=== PATIENT | male | born 1965 | race Caucasian/White ===

== ENCOUNTER 2018-11-19 23:11 | Inpatient (IN) ==
[2018-11-19] MEDS ORDERED: ONDANSETRON HCL/PF 2 MG/ML VIAL IV ONE (23:58)
[2018-11-19] MEDS ORDERED: NORMAL SALINE 1,000 ML IV ONE (23:59)
--- NOTE | 2018-11-20 00:06 | ERNOTE ---
Abdominal HPI - General Chief Complaint: Abdominal Pain Time Seen by Provider: 11/19/18 23:43 Source: patient Exam Limitations: clinical condition - Immun/Allergies/Home Medications Immunizatons: IMMUNIZATION HX Immunizations Up to Date Yes History of Influenza Vaccine No Hx Pneumococcal Vaccination No Allergies/Adverse Reactions: Allergies codeine Allergy (Verified 11/19/18 23:36) itching Home Medications: HOME MEDICATIONS Lisinopril/Hydrochlorothiazide [Lisinopril-Hctz 20-12.5 mg Tab] 1 ea PO DAILY 11/19/18 [Last Taken Unknown] - History of Present Illness Narrative: Pt states that earlier today he began to have periumbilical abdominal pain that has worsened. He is concerned that he may have injested some metal after opening a can of food with tin snips. Timing: getting worse Quality: moderate, severe, aching Activities at Onset: none Associated Symptoms: Present: nausea. Absent: back pain, vomiting Review of Systems - Review of Systems Constitutional: Present: recent illness - URI, just finished azithromycin today, fever, chills, fatigue EYE: Absent: vision changes ENT: Present: nose congestion, nasal drainage - with previous illness Respiratory: Present: shortness of breath Cardiology: Absent: chest pain Gastrointestinal/Abdominal: Present: See HPI, nausea, constipation. Absent: vomiting, diarrhea Genitourinary: Absent: frequency, pain, dysuria Musculoskeletal: Absent: back pain Skin: Absent: rash Neurological: Absent: headache, dizziness/light-headedness Endocrine: Present: excessive sweating. Absent: increased hunger Medical History (Last Reviewed 11/19/18 @ 23:57 by Ismael Jaeger DO) Arthritis Onset Date: Unknown Hernia Onset Date: Unknown Right knee pain Onset Date: ~08/2018 Surgical History: Surgical History (Last Reviewed 11/19/18 @ 23:57 by Ismael Jaeger DO) History of hernia surgery Onset Date: Unknown x3 Family History: Family History (Last Reviewed 11/19/18 @ 23:57 by Ismael Jaeger DO) Mother Cancer Father CVA (cerebral vascular accident) Social History: Preferred Language Japanese Do you have any gnosticist or No cultural preference? Smoking Status Current every day smoker Smoking packs per day 0.5 Alcohol Use none Drug Use none (Last Updated 08/22/18 @ 13:22 by VANDANA Olmstead) No Social History Section defined Physical Exam - Physical Exam General Appearance: Present: wd/wn, alert, moderate distress Head Exam: Present: normal inspection, no evidence of injury Eye Exam: Normal inspection: bilateral, PERRL: bilateral, EOMI: bilateral Ears, Nose, Throat: Present: normal ENT inspection Neck: Present: normal inspection, nontender, supple, full range of motion Respiratory: Present: no respiratory distress, no accessory muscle use, chest nontender, lungs clear Cardiovascular/Chest: Present: regular rate, rhythm, no murmur Gastrointestinal/Abdominal: Present: normal bowel sounds, tenderness - most epigastric and RLQ. . Absent: distended, guarding, rebound Back Exam: Present: normal inspection, normal range of motion, no CVA tenderness Extremity Exam: Present: normal inspection, non-tender, normal range of motion, no edema Neurological Exam: Present: alert, oriented, no motor/sensory deficits Skin Exam: Present: normal color, warm/dry Lymphatic Exam: Present: no adenopathy Progress - Results and Orders Patient's Lab Results:: I have reviewed the patient's lab results. Results and Orders: Laboratory Tests 11/20/18 11/20/18 11/20/18 00:05 00:05 01:21 WBC 19.4 H Hgb 15.8 Hct 47.6 Plt Count 305 Sodium 132 Potassium 4.4 Chloride 97 Carbon Dioxide 25.1 BUN 19 Creatinine 1.22 Random Glucose 123 H Calcium 9.1 Total Bilirubin 0.4 AST 19 ALT 19 Alkaline Phosphatase 106 Total Protein 7.3 Albumin 3.7 Amylase 63 Lipase 204 Urine Color Yellow Urine Appearance Clear Urine pH 6.5 Ur Specific [place] 1.025 Urine Protein Negative Urine Glucose (UA) Negative Urine Ketones Negative Urine Blood Negative Urine Nitrate Negative Urine Bilirubin Negative Urine Urobilinogen Normal Ur Leukocyte Esterase Negative Urine RBC None seen Urine WBC Trace Ur Epithelial Cells Trace Urine Bacteria Trace Hyaline Casts 0-5 H Urine Culture Comments No culture indicated - Vital Signs Patient's Vital Signs:: I have reviewed the patient's vital signs. Vital Signs: Vital Signs 11/19/18 23:30 Temperature 36.7 C Pulse Rate 102 H Respiratory Rate 18 Blood Pressure 116/82 O2 Sat by Pulse Oximetry 95 - X-Ray X-Ray #1 X-Ray: abdomen Interpretation: Interp. by nc X-ray Comments: mild - mod a/f levels without specific evidence for obstruction. no free air. X-Ray #2 X-Ray: chest Interpretation: Interp. by me X-ray Comments: Post NG placement. NG tube well within the stomach. - CT/Ultrasound CT/Ultrasound Narrative: CT abdomen/ pelvis: Acute small bowel obstruction with distal transition point. No evidence of obstruction. - Progress/Reassessment Chief Complaint: Abdominal Pain Progress:: Improved Progress Note-Subjective: 11/20/18 04:[address] Acharya about admission, She agrees with admission. Departure Clinical Impression: Small bowel obstruction - Departure Disposition: Still a patient Condition: Fair
[2018-11-20 00:14] LABS: Hematocrit 47.6 % (42.0-52.0); Hemoglobin 15.8 gm/dL (13.5-18.0); Mean Cell Volume 86.9 fl (78-100); Mean Corpuscular Hemoglobin 28.8 pg (27-31); Mean Corpuscular Hgb Conc 33.2 g/dl (32-36); Mean Platelet Volume 10.1 fl (8-11.3); Neutrophil # 14.5 K/mm3 (1.3-6.0); Neutrophil % 74.8 % (42-75.0); Platelet Count 305 K/mm3 (150-450); Red Blood Count 5.48 M/mm3 (4.7-6.0); Red Cell Distribution Width 14.1 % (11.5-14.0); White Blood Count 19.4 K/mm3 (4.0-10.5)
[2018-11-20 00:29] LABS: BUN/Creatinine Ratio 15.6 (9.0-21.6)
[2018-11-20 00:30] LABS: Albumin * 3.7 gm/dl (3.4-5.0); Anion Gap 14.3 mmol/L (6.8-13.8); Bilirubin, Total 0.4 mg/dL (0.0-1.1); Calcium * 9.1 mg/dL (7.9-10.9); Carbon Dioxide 25.1 mmol/L (24-32.6); Potassium 4.4 mmol/L (3.4-4.6); Total Protein 7.3 gm/dL (6.2-8.2)
[2018-11-20 01:24] LABS: Urine Bilirubin Negative (NEGATIVE); Urine Blood Negative /ul (NEGATIVE); Urine Ketone Negative (NEGATIVE); Urine Nitrite Negative (NEGATIVE); Urine Protein Negative (NEGATIVE); Urine Specific Gravity 1.025 SP.GR. (1.005-1.030); Urine Urobilinogen Normal (NORMAL); Urine pH 6.5 pH (5.0-7.0)
[2018-11-20 01:33] LABS: Urine Appearance Clear (CLEAR); Urine Bacteria TRACE; Urine Color Yellow; Urine Hyaline Cast 0-5 /LPF; Urine RBC None Seen /hpf (0-5); Urine WBC TRACE /hpf (0-5)
[2018-11-20] MEDS ORDERED: DIATRIZOATE MEGLUMINE, SODIUM 30 ML BTL PO ONE (01:37)
[2018-11-20] MEDS ORDERED: MORPHINE SULFATE 2 MG/ML DISP.SYRIN IV ONE ×2 (01:39→04:13)
[2018-11-20] MEDS: ONDANSETRON HCL/PF 2 MG/ML VIAL IV PRN ×2 (07:22→20:15)
[2018-11-20] MEDS ORDERED: ACETAMINOPHEN 1,000 MG/100 ML BTL IV PRN (07:25)
[2018-11-20 08:03] LABS: Troponin I Less than 0.017 ng/mL (0.00-0.10)
[2018-11-20 08:08] LABS: CK Total * 61 U/L (0-259); CKMB 1.5 ng/mL (0.0-9.0)
[2018-11-20] MEDS: POTASSIUM CHLORIDE 20 MEQ in DEXTROSE 5%-0.5 NORMAL SALINE 990 ML IV SCH ×2 (08:23→16:31)
[2018-11-20] MEDS: PANTOPRAZOLE SODIUM 40 MG in NORMAL SALINE 100 ML IV SCH (08:24)
[2018-11-20 08:34] LABS: Hematocrit 48.9 % (42.0-52.0); Hemoglobin 16.4 gm/dL (13.5-18.0); Mean Cell Volume 87.2 fl (78-100); Mean Corpuscular Hemoglobin 29.2 pg (27-31); Mean Corpuscular Hgb Conc 33.5 g/dl (32-36); Mean Platelet Volume 10.2 fl (8-11.3); Neutrophil # 14.9 K/mm3 (1.3-6.0); Neutrophil % 79.3 % (42-75.0); Platelet Count 301 K/mm3 (150-450); Red Blood Count 5.61 M/mm3 (4.7-6.0); Red Cell Distribution Width 14.2 % (11.5-14.0); White Blood Count 18.8 K/mm3 (4.0-10.5)
--- NOTE | 2018-11-20 08:40 | HP ---
Chief Complaint - Chief Complaint Date of Service: 11/20/18 Time of Service: 08:39 Chief Complaint: bowel obstruction History of Present Illness: Patient's mother provided most of the history. Patient is hard of hearing, but did not answer many of my questions, even with a loud voice. He states that his last bowel movement was the day before yesterday. He is uncertain if he is passing flatus. His mother states he has never had a bowel obstruction before. He has had multiple inguinal hernia surgeries in the past. He breakfast and lunch yesterday. He called his mom last night and said he did not feel on asked her to take him to the emergency room. He believes that his last stool was normal. He has never had a colonoscopy. There is a family history of colon cancer in his aunt, but no first-degree relative. He previously had chest pain this morning. He also was having dry heaves at the same time. He has not had much out of his NG tube. After receiving Zofran, dry heaves improved, and his chest pain resolved. He currently denies any abdominal pain. As I continued with the interview his abdominal pain return, it was mild, he was not grimacing, but he states that comes and goes. Medical History (Last Updated 11/20/18 @ 07:06 by Daisy Ramirez RN) HTN (hypertension) Arthritis Onset Date: Unknown Hernia Onset Date: Unknown Right knee pain Onset Date: ~08/2018 Surgical History: Surgical History (Last Reviewed 11/20/18 @ 07:06 by Daisy Ramirez RN) History of hernia surgery Onset Date: Unknown x3 Family History: Family History (Last Reviewed 11/20/18 @ 07:06 by Daisy Ramirez RN) Mother Cancer Father CVA (cerebral vascular accident) H/O mitral valve replacement Brother Myocardial infarction Hypertension Social History: Patient Lives/Resources With Spouse Utilized Preferred Language Central African Do you have any mandaen or Yes: Muslim cultural preference? Smoking Status Current every day smoker Have you smoked in the past 12 Yes months Smoking packs per day 0.5 Do you dip or chew tobacco No Alcohol Use none Drug Use none (Last Updated 08/22/18 @ 13:22 by VANDANA Olmstead) No Social History Section defined Review Of Systems (GEN) - Review of Systems Generalized/Overall Review: Present: No Symptoms Reported - Unable to obtain a review of systems due to patient participation Immunizations: IMMUNIZATION HX Immunizations Up to Date Yes History of Influenza Vaccine No Hx Pneumococcal Vaccination No Allergies/Adverse Reactions: Allergies Allergy/AdvReac Type Severity Reaction Status Date / Time codeine Allergy itching Verified 11/19/18 23:36 Home Medications: HOME MEDICATIONS Lisinopril/Hydrochlorothiazide [Lisinopril-Hctz 20-12.5 mg Tab] 1 ea PO DAILY 11/19/18 [Last Taken Unknown] Exam - Exam Vital Signs: Vital Signs - Last Taken Temp 36.8 C 11/20/18 04:39 Pulse 94 11/20/18 05:00 Resp 14 11/20/18 05:00 BP 140/88 H 11/20/18 05:00 Pulse Ox 95 11/20/18 05:00 Constitutional: Present: Alert, Well developed, No distress ENT Exam: Present: hard of hearing Neck: Present: supple Respiratory: Present: lungs clear, normal breath sounds, no respiratory distress Cardiovascular/Chest: Present: regular rate, rhythm, no edema Abdomen: Present: Normal bowel sounds, soft, nontender, distended, hernia - Umbilical. Absent: nondistended Extremity: Present: normal range of motion Skin Exam: Present: normal color Neurologic: Present: executive chef II-XII nml as tested Appearance: Present: impaired insight, impaired recent memory Eye contact: Present: avoids eye contact, uncooperative. Absent: good eye contact Thoughts: Absent: normal thought pattern - Does not answer questions, has his mother answer questions, normal mood /affect Diagnostic Studies: Abnormal Lab Results 11/20/18 11/20/18 11/20/18 Range/Units 00:05 00:05 01:21 WBC 19.4 H (4.0-10.5) K/mm3 RDW 14.1 H (11.5-14.0) % Immature Gran % (Auto) 0.60 H (0.001-0.429) % Immature Gran # (Auto) 0.11 H (0.000-0.0310) K/mm3 Neutrophils % (42-75.0) % Lymphocytes % 15.8 L (20-51) % Neutrophils # 14.5 H (1.3-6.0) K/mm3 Monocytes # 1.3 H (0.0-1.0) k/mm3 Anion Gap 14.3 H (6.8-13.8) mmol/L Random Glucose 123 H (70-110) mg/dL Hyaline Casts 0-5 H (NONE) /LPF 11/20/18 Range/Units 07:47 WBC 18.8 H (4.0-10.5) K/mm3 RDW 14.2 H (11.5-14.0) % Immature Gran % (Auto) (0.001-0.429) % Immature Gran # (Auto) 0.07 H (0.000-0.0310) K/mm3 Neutrophils % 79.3 H (42-75.0) % Lymphocytes % 13.1 L (20-51) % Neutrophils # 14.9 H (1.3-6.0) K/mm3 Monocytes # 1.2 H (0.0-1.0) k/mm3 Anion Gap (6.8-13.8) mmol/L Random Glucose (70-110) mg/dL Hyaline Casts (NONE) /LPF Laboratory Results WBC 18.8 K/mm3 (4.0-10.5) H 11/20/18 07:47 RBC 5.61 M/mm3 (4.7-6.0) 11/20/18 07:47 Hgb 16.4 gm/dL (13.5-18.0) 11/20/18 07:47 Hct 48.9 % (42.0-52.0) 11/20/18 07:47 MCV 87.2 fl (78-100) 11/20/18 07:47 MCH 29.2 pg (27-31) 11/20/18 07:47 MCHC 33.5 g/dl (32-36) 11/20/18 07:47 RDW 14.2 % (11.5-14.0) H 11/20/18 07:47 Plt Count 301 K/mm3 (150-450) 11/20/18 07:47 MPV 10.2 fl (8-11.3) 11/20/18 07:47 Immature Gran % (Auto) 0.40 % (0.001-0.429) 11/20/18 07:47 Immature Gran # (Auto) 0.07 K/mm3 (0.000-0.0310) H 11/20/18 07:47 Neutrophils % 79.3 % (42-75.0) H 11/20/18 07:47 Lymphocytes % 13.1 % (20-51) L 11/20/18 07:47 Monocytes % 6.2 % (0.0-9) 11/20/18 07:47 Eosinophils % 0.8 % (0.0-3.0) 11/20/18 07:47 Basophils % 0.2 % (0.0-1.0) 11/20/18 07:47 Nucleated RBC % 0.0 k/mm3 (0-1) 11/20/18 07:47 Neutrophils # 14.9 K/mm3 (1.3-6.0) H 11/20/18 07:47 Lymphocytes # 2.45 k/mm3 (1.5-3.5) 11/20/18 07:47 Monocytes # 1.2 k/mm3 (0.0-1.0) H 11/20/18 07:47 Eosinophils # 0.2 k/mm3 (0.0-0.7) 11/20/18 07:47 Absolute Basophils 0.0 k/mm3 (0.0-0.1) 11/20/18 07:47 Sodium 132 mmol/L (132-142) 11/20/18 00:05 Plasma Sodium 132 mmol/L (130-142) 11/20/18 00:05 Potassium 4.4 mmol/L (3.4-4.6) 11/20/18 00:05 Chloride 97 mmol/L (97-106) 11/20/18 00:05 Carbon Dioxide 25.1 mmol/L (24-32.6) 11/20/18 00:05 Anion Gap 14.3 mmol/L (6.8-13.8) H 11/20/18 00:05 BUN 19 mg/dL (6-23) 11/20/18 00:05 Creatinine 1.22 mg/dL (0.4-1.4) 11/20/18 00:05 Est GFR (Non-Af Amer) 66 mL/min (60-130) 11/20/18 00:05 BUN/Creatinine Ratio 15.6 (9.0-21.6) 11/20/18 00:05 Random Glucose 123 mg/dL (70-110) H 11/20/18 00:05 Calcium 9.1 mg/dL (7.9-10.9) 11/20/18 00:05 Calcium Adj for Albumin 9.0 mg/dL (8.4-10.2) 11/20/18 00:05 Total Bilirubin 0.4 mg/dL (0.0-1.1) 11/20/18 00:05 AST 19 U/L (0-48) 11/20/18 00:05 ALT 19 U/L (19-67) 11/20/18 00:05 Alkaline Phosphatase 106 U/L (50-170) 11/20/18 00:05 Creatine Kinase 61 U/L (0-259) 11/20/18 07:42 CK-MB (CK-2) 1.5 ng/mL (0.0-9.0) 11/20/18 07:42 CK-MB (CK-2) Rel Index 2.5 (0.0-3.6) 11/20/18 07:42 Troponin I Less than 0.017 ng/mL (0.00-0.10) 11/20/18 07:42 Total Protein 7.3 gm/dL (6.2-8.2) 11/20/18 00:05 Albumin 3.7 gm/dl (3.4-5.0) 11/20/18 00:05 Amylase 63 U/L (25-115) 11/20/18 00:05 Lipase 204 U/L (73-393) 11/20/18 00:05 Urine Color Yellow 11/20/18 01:21 Urine Appearance Clear (CLEAR) 11/20/18 01:21 Urine pH 6.5 pH (5.0-7.0) 11/20/18 01:21 Ur Specific [place] 1.025 SP.GR. (1.005-1.030) 11/20/18 01:21 Urine Protein Negative mg/dL (NEGATIVE) 11/20/18 01:21 Urine Glucose (UA) Negative mg/dL (NEGATIVE) 11/20/18 01:21 Urine Ketones Negative mg/dL (NEGATIVE) 11/20/18 01:21 Urine Blood Negative /ul (NEGATIVE) 11/20/18 01:21 Urine Nitrate Negative (NEGATIVE) 11/20/18 01:21 Urine Bilirubin Negative mg/dl (NEGATIVE) 11/20/18 01:21 Urine Urobilinogen Normal EU/dl (NORMAL) 11/20/18 01:21 Ur Leukocyte Esterase Negative /ul (NEGATIVE) 11/20/18 01:21 Urine RBC None seen /hpf (0-5) 11/20/18 01:21 Urine WBC Trace /hpf (0-5) 11/20/18 01:21 Ur Epithelial Cells Trace /hpf (0-5) 11/20/18 01:21 Urine Bacteria Trace (NONE) 11/20/18 01:21 Hyaline Casts 0-5 /LPF (NONE) H 11/20/18 01:21 Urine Culture Comments No culture indicated 11/20/18 01:21 Assessment/Plan - Assessment/Plan (1) Hard of hearing Problem: Acute (2) Hypertension Problem: Acute (3) Small bowel obstruction Problem: Acute Plan - Plan Plan: NG to LIS, flush as currently no outpt CE normal FP consult for CP and HTN IVF Protonix SCD pain and nausea meds prn conservative management recheck WBC labs in am
--- NOTE | 2018-11-20 16:58 | CONS ---
[facility] - General Date of Service: 11/20/18 Source: patient, family Exam Limitations: other - History of Present Illness Initial Comments: Consulted due to chest pain that began earlier this morning after an NG tube was placed, lasted for roughly an hour to 1/2-2 hours, resolved with antinausea medication. Patient denied radiating pain, diaphoresis, vision changes, headache. Patient has had nausea which is to be expected due to left small bowel obstruction. When seen this morning his blood pressure and heart rate were stable, he was satting well on room air, he denied any chest discomfort. Timing/Duration: resolved prior to arrival Severity: mild Modifying Factors - (Improves): Reports: medication Associated Symptoms: denies symptoms Allergies/Adverse Reactions: Allergies codeine Allergy (Verified 11/19/18 23:36) itching Home Medications: Home Medications Medication Instructions Recorded Last Taken Lisinopril/Hydrochlorothiazide 1 ea PO DAILY 11/19/18 Unknown [Lisinopril-Hctz 20-12.5 mg Tab] Medications - Medications Current Medications: Current Medications Potassium Chloride 20 meq/ (Dextrose/Sodium Chloride) 1,000 mls @ 125 mls/hr IV .Q8H [facility] Stop: 12/20/18 07:16 Last Admin: 11/20/18 16:31 Dose: 125 mls/hr Documented by: Pantoprazole Sodium 40 mg/ (Sodium Chloride) 100 mls @ 400 mls/hr IV Q24H [facility] Stop: 12/20/18 08:01 Last Infusion: 11/20/18 08:39 Dose: Infused Documented by: Ondansetron HCl (Zofran) 4 mg IV Q6H PRN PRN Reason: Nausea And Vomiting Stop: 12/20/18 07:15 Last Admin: 11/20/18 07:22 Dose: 4 mg Documented by: Review of Systems - Review of Systems Generalized/Overall Review: Absent: Chills, Fever Respiratory: Absent: Cough, Shortness of Breath Cardiac: Absent: Chest Pain, Palpitations Abdominal: Present: Nausea, Abdominal Pain, Constipation Genitourinary: Present: No Symptoms Reported Musculoskeletal: Present: No Symptoms Reported Neurological: Present: No Symptoms Reported Skin: Present: No Symptoms Reported Physical Examination - Exam Vital Signs: Vital Signs - Last Taken Temp 37.1 C 11/20/18 14:55 Pulse 112 H 11/20/18 14:55 Resp 16 11/20/18 14:55 BP 137/83 11/20/18 14:55 Pulse Ox 95 11/20/18 14:55 O2 Oxygen Delivery Method Room Air Constitutional: Present: Alert, Oriented x3, Mild distress. Absent: Cooperative ENT Exam: Present: hard of hearing. Absent: nasal congestion, nasal drainage Eye Exam: bilateral eye: normal inspection, EOMI Neck: Present: non-tender, supple Respiratory: Present: chest non-tender, lungs clear, normal breath sounds Cardiovascular/Chest: Present: normal peripheral pulses, regular rate, rhythm, no edema Skin Exam: Present: normal color, warm/dry Appearance: Present: disheveled, impaired insight Eye contact: Present: avoids eye contact. Absent: refused to answer - His mother answered most of the questions, he did not feel like talking - Results and Findings: Lab/Microbiology results last 24 hrs: Abnormal/Pending Laboratory Last 24 HRS 11/20/18 11/20/18 11/20/18 07:47 01:21 00:05 WBC 18.8 H RDW 14.2 H Immature Gran % (Auto) Immature Gran # (Auto) 0.07 H Neutrophils % 79.3 H Lymphocytes % 13.1 L Neutrophils # 14.9 H Monocytes # 1.2 H Anion Gap 14.3 H Random Glucose 123 H Hyaline Casts 0-5 H 11/20/18 00:05 WBC 19.4 H RDW 14.1 H Immature Gran % (Auto) 0.60 H Immature Gran # (Auto) 0.11 H Neutrophils % Lymphocytes % 15.8 L Neutrophils # 14.5 H Monocytes # 1.3 H Anion Gap Random Glucose Hyaline Casts - Assessments/Findings (1) Chest pain Diagnosis(s): Small bowel obstruction being managed by Dr. Rico of general surgery. Chest pain resolved quickly without any intervention. Likely due to irritation from the NG tube being placed. Patient also has a history of acid reflux. Vital signs are stable, will continue to monitor. The chest pain returns we will order EKG and cardiac enzymes. Blood pressure within normal limits at this time. Will monitor. Appreciate Dr. Acharya asking for help with this case, will continue to follow with her. Problem: Acute (2) Hypertension Problem: Acute (3) Hard of hearing Problem: Acute
[2018-11-20] MEDS ORDERED: PHENOL 180 SPRAY BTL MM PRN (17:43)
[2018-11-20] MEDS: KETOROLAC TROMETHAMINE 15 MG/ML VIAL IV PRN (20:15)
[2018-11-20] MEDS: HYDROmorphone HCL 1 MG/ML DISP.SYRIN IV PRN (22:41)
[2018-11-21] MEDS: POTASSIUM CHLORIDE 20 MEQ in DEXTROSE 5%-0.5 NORMAL SALINE 990 ML IV SCH ×2 (00:12→09:20)
[2018-11-21] MEDS: KETOROLAC TROMETHAMINE 15 MG/ML VIAL IV PRN (02:20)
[2018-11-21] MEDS: HYDROmorphone HCL 1 MG/ML DISP.SYRIN IV PRN ×2 (04:57→07:08)
[2018-11-21] MEDS: ONDANSETRON HCL/PF 2 MG/ML VIAL IV PRN (05:03)
[2018-11-21 05:43] LABS: Hematocrit 43.9 % (42.0-52.0); Hemoglobin 14.4 gm/dL (13.5-18.0); Mean Corpuscular Hemoglobin 29.2 pg (27-31); Mean Corpuscular Hgb Conc 32.8 g/dl (32-36); Mean Platelet Volume 10.1 fl (8-11.3); Neutrophil # 5.8 K/mm3 (1.3-6.0); Neutrophil % 60.1 % (42-75.0); Platelet Count 244 K/mm3 (150-450); Red Blood Count 4.93 M/mm3 (4.7-6.0); Red Cell Distribution Width 14.5 % (11.5-14.0); White Blood Count 9.6 K/mm3 (4.0-10.5)
[2018-11-21] MEDS: PANTOPRAZOLE SODIUM 40 MG in NORMAL SALINE 100 ML IV SCH (07:08)
--- NOTE | 2018-11-21 10:06 | PN ---
Dictated Progress Note - Date and Time Seen: Date: 11/21/18 Time: 10:04 - Progress Note Narrative: feeling much better, having flatus, no n/v. feels hungry. denies bm, but nursing recorded bm, and he is a poor historian. Vital Signs - Last Taken Temp 36.6 C 11/21/18 07:00 Pulse 77 11/21/18 07:00 Resp 18 11/21/18 07:00 BP 153/89 H 11/21/18 07:00 Pulse Ox 95 11/21/18 07:00 Abnormal/Pending Laboratory Last 24 HRS 11/21/18 05:20 RDW 14.5 H Immature Gran # (Auto) 0.04 H Eosinophils % 4.2 H NAD abd firm- pt states this is normal for him, even his grandkids talk about this RRR non labored respiration skin warm and dry Imp: SBO- resolving Plan: clamp NG, start clears possible dc later today or tomorrow
--- NOTE | 2018-11-21 12:52 | PN ---
Subjective - Date and Time Seen Date: 11/21/18 Time: 10:54 Subjective Narrative: Patient continues to do well. No recurrent chest pain. Blood pressure fairly stabilized though he did have one elevated reading advised that we restart his home medications once able to tolerate it. Pain significantly improved which I think is also helped with his blood pressure. No adverse events overnight Objective - Review of Systems Generalized/Overall Review: Denies: Chills, Fever EENTM: Reports: No Symptoms Reported Respiratory: Denies: Cough, Shortness of Breath Cardiac: Denies: Chest Pain, Edema, Palpitations - Vitals Vitals: Last Vital Signs Temp 36.6 C 11/21/18 10:54 Pulse 86 11/21/18 10:54 Resp 18 11/21/18 10:54 BP 114/79 11/21/18 10:54 Pulse Ox 94 11/21/18 10:54 - Abnormal Lab Findings Abnormal Lab Findings: Abnormal Lab Results 11/21/18 Range/Units 05:20 RDW 14.5 H (11.5-14.0) % Immature Gran # (Auto) 0.04 H (0.000-0.0310) K/mm3 Eosinophils % 4.2 H (0.0-3.0) % - Exam Constitutional: Present: Alert, Oriented x3 Respiratory: Present: lungs clear, normal breath sounds Cardiovascular/Chest: Present: normal peripheral pulses, regular rate, rhythm, no chest tenderness, no edema Skin Exam: Present: normal color, warm/dry Thoughts: Present: normal thought pattern, normal mood /affect Assessment/Plan Plan Narrative: Small bowel obstruction being managed by general surgery. Appreciate the opportunity to help out with this case. Chest pain completely resolved, no issues or acute events overnight. Blood pressure stable, recommend restarting home hypertensive medications at discharge. No other medical management needed at this time, medical team signed off the case. - Problems/Diagnosis (1) Chest pain Problem: Acute (2) Hypertension Problem: Chronic (3) Hard of hearing Problem: Chronic
--- NOTE | 2018-11-21 13:40 | DS ---
(1) Hard of hearing Problem: Chronic (2) Hypertension Problem: Chronic (3) Small bowel obstruction Problem: Resolved Description of Stay: Toni is a very pleasant 53-year-old gentleman who came in with the bowel obstruction. An NG tube was placed. He developed chest pain which was likely GI in nature from dry heaving. His cardiac evaluation was negative. Family practice was consulted. He developed bowel function. He is able to tolerate clears. His abdominal pain, nausea and vomiting resolved. If he tolerates a soft diet, he will be ready for discharge. Procedures Performed: none Results and Findings: Lab Pending Results 11/20/18 00:05: WBC 19.4 H, RBC 5.48, Hgb 15.8, Hct 47.6, MCV 86.9, MCH 28.8, MCHC 33.2, RDW 14.1 H, Plt Count 305, MPV 10.1, Immature Gran % (Auto) 0.60 H, Immature Gran # (Auto) 0.11 H, Neutrophils % 74.8, Lymphocytes % 15.8 L, Monocytes % 6.5, Eosinophils % 1.9, Basophils % 0.4, Nucleated RBC % 0.0, Neutrophils # 14.5 H, Lymphocytes # 3.06, Monocytes # 1.3 H, Eosinophils # 0.4, Absolute Basophils 0.1 11/20/18 00:05: Sodium 132, Plasma Sodium 132, Potassium 4.4, Chloride 97, Carbon Dioxide 25.1, Anion Gap 14.3 H, BUN 19, Creatinine 1.22, Est GFR (Non-Af Amer) 66, BUN/Creatinine Ratio 15.6, Random Glucose 123 H, Calcium 9.1, Calcium Adj for Albumin 9.0, Total Bilirubin 0.4, AST 19, ALT 19, Alkaline Phosphatase 106, Total Protein 7.3, Albumin 3.7, Amylase 63, Lipase 204 11/20/18 01:21: Urine Color Yellow, Urine Appearance Clear, Urine pH 6.5, Ur Specific [place] 1.025, Urine Protein Negative, Urine Glucose (UA) Negative, Urine Ketones Negative, Urine Blood Negative, Urine Nitrate Negative, Urine Bilirubin Negative, Urine Urobilinogen Normal, Ur Leukocyte Esterase Negative, Urine RBC None seen, Urine WBC Trace, Ur Epithelial Cells Trace, Urine Bacteria Trace, Hyaline Casts 0-5 H, Urine Culture Comments No culture indicated 11/20/18 07:42: Creatine Kinase 61, CK-MB (CK-2) 1.5, CK-MB (CK-2) Rel Index 2.5, Troponin I Less than 0.017 11/20/18 07:47: WBC 18.8 H, RBC 5.61, Hgb 16.4, Hct 48.9, MCV 87.2, MCH 29.2, MCHC 33.5, RDW 14.2 H, Plt Count 301, MPV 10.2, Immature Gran % (Auto) 0.40, Immature Gran # (Auto) 0.07 H, Neutrophils % 79.3 H, Lymphocytes % 13.1 L, Monocytes % 6.2, Eosinophils % 0.8, Basophils % 0.2, Nucleated RBC % 0.0, Neutrophils # 14.9 H, Lymphocytes # 2.45, Monocytes # 1.2 H, Eosinophils # 0.2, Absolute Basophils 0.0 11/21/18 05:20: WBC 9.6 D, RBC 4.93, Hgb 14.4, Hct 43.9, MCV 89.0, MCH 29.2, MCHC 32.8, RDW 14.5 H, Plt Count 244, MPV 10.1, Immature Gran % (Auto) 0.40, Immature Gran # (Auto) 0.04 H, Neutrophils % 60.1, Lymphocytes % 28.3, Monocytes % 6.6, Eosinophils % 4.2 H, Basophils % 0.4, Nucleated RBC % 0.0, Neutrophils # 5.8, Lymphocytes # 2.73, Monocytes # 0.6, Eosinophils # 0.4, Absolute Basophils 0.0 Discharge Location: Home Disposition: Home self-care Condition: Fair Discharge Activity: Activity as tolerated Discharge Diet: [facility] soft Complete Home Medications List: Complete Home Medication List: Lisinopril/Hydrochlorothiazide [Lisinopril-Hctz 20-12.5 mg Tab] 1 ea PO DAILY 11/19/18
[2018-11-21 15:05] VITALS: BP 127/84
== END 2018-11-21 15:18 | disposition home or self-care (01) | DRG 390 ==
LOC: ER 23:11 → MS 11-20 04:37
PROVIDERS: ADMIT Surgery; ATTEND Surgery
CPT/HCPCS: 36415; 71010; 71045; 74019; 74020; 74177; 80053; 81001; 82150; 82550; 82553; 83690; 84484; 85025; 93005; 96361; 96374; 96375; 96376; 99285; J2405